=== PATIENT | female | born 1995 | race Hispanic/Latino ===

== ENCOUNTER 2023-03-12 02:43 | Day surgery (SDC) | payer OTHER | END 2023-03-12 04:38 | disposition home or self-care (01) | LOC: CSHLD/OP 02:43 | PROVIDERS: ATTEND Family Medicine | DX: O47.1 False labor at or after 37 completed weeks of gestation (principal); O34.211 Maternal care for low transverse scar from previous cesarean delivery; Z79.899 Other long term (current) drug therapy; Z3A.39 39 weeks gestation of pregnancy | CPT/HCPCS: 99283 ==

== ENCOUNTER 2023-03-12 11:16 | Outpatient (CLI) | payer OTHER | END 2023-03-12 11:17 | disposition home or self-care (01) | LOC: CSHLAB 11:16 | PROVIDERS: ATTEND Family Medicine | DX: Z01.812 Encounter for preprocedural laboratory examination (principal); O34.219 Maternal care for unspecified type scar from previous cesarean delivery; Z53.9 Procedure and treatment not carried out, unspecified reason | CPT/HCPCS: 85014; 85018; 85049; 86780; 86850; 86900; 86901; 87340 ==

== ENCOUNTER 2023-03-13 14:49 | Inpatient (IN) | payer MEDICAID, OTHER ==
[2023-03-12 12:34] LABS: Hematocrit 40.9 % (34.9-44.5); Hemoglobin 14.1 g/dL (12.0-15.5); Platelet Count 229 10x3/uL (150-450)
[2023-03-12 13:01] LABS: HBSAg Index 0.14 S/CO (0-0.99); Hep B Surf Ag Non-Reactive S/CO (NonReactive)
[2023-03-12 13:02] LABS: Syphilis Antibody Nonreactive (Nonreactive); Syphilis Antibody Index 0.13 S/CO (<1.00 Non-Reactive)
[2023-03-13 15:14] VITALS: BMI 36.6
[2023-03-13] MEDS ORDERED: ePHEDrine Sulfate 50 MG/10 ML VIAL ONE (15:36)
[2023-03-13] MEDS ORDERED: PHENYLEPHRINE-NS 100 MCG/ML 10 ML SYRINGE ONE (15:36)
[2023-03-13] MEDS ORDERED: Lidocaine 1% PF 5 ML VIAL ONE (15:36)
[2023-03-13] MEDS ORDERED: Bupivacaine 0.75% W/DEXTROSE 8.25% 2 ML AMP ONE (15:36)
[2023-03-13] MEDS ORDERED: Phenylephrine 40 MG/NS 250 ML 250 ML ONE (15:36)
[2023-03-13] MEDS ORDERED: Oxytocin 10 UNITS/ML VIAL ONE (15:36)
[2023-03-13] MEDS ORDERED: Morphine PF 10 MG/10 ML VIAL ONE (15:36)
[2023-03-13] MEDS ORDERED: fentaNYL 50 mcg/mL 1 mL Vial ONE ×2 (15:36→20:29)
[2023-03-13] MEDS ORDERED: Ondansetron PF 4 MG/2 ML Vial ONE (15:36)
[2023-03-13] MEDS ORDERED: Ketorolac Tromethamine 30 MG/ML VIAL ONE (15:36)
[2023-03-13] MEDS ORDERED: CEFAZOLIN 2 GM VIAL ONE (16:08)
[2023-03-13] MEDS ORDERED: Lactated Ringer's 1,000 ML IV SCH (16:35)
[2023-03-13] MEDS ORDERED: Misoprostol 200 MCG TAB PR PRN (16:35)
[2023-03-13] MEDS ORDERED: hydrALAZINE 20 MG/ML VIAL SLOW IVP PRN ×2 (16:35→23:52)
[2023-03-13] MEDS ORDERED: Famotidine/PF 20 mg/2ml Vial SLOW IVP PRN (16:35)
[2023-03-13] MEDS ORDERED: Carboprost 250 MCG/ML AMP IM PRN (16:35)
[2023-03-13] MEDS ORDERED: Tranexamic Acid 1,000 MG/10 ML VIAL IVP PRN (16:35)
[2023-03-13] MEDS ORDERED: CEFAZOLIN 2 GM in Sodium Chloride 0.9% 100 ML IVPB SCH (16:35)
[2023-03-13] MEDS ORDERED: Promethazine HCl 25 MG/ML VIAL IM PRN ×3 (16:35→23:52)
[2023-03-13] MEDS ORDERED: Bicitra 30 ML UDCUP PO PRN (16:35)
[2023-03-13] MEDS ORDERED: Ondansetron PF 4 MG/2 ML Vial IVP PRN ×3 (16:35→23:52)
[2023-03-13] MEDS ORDERED: Methylergonovine 0.2 MG/ML VIAL IM PRN (16:35)
[2023-03-13] MEDS ORDERED: Diphenoxylate HCl/Atropine Tablet PO PRN (16:35)
[2023-03-13] MEDS ORDERED: Oxytocin 30 units/NS 500 ML 500 ML IV SCH (16:35)
[2023-03-13] MEDS ORDERED: Naloxone HCl 0.4 mg/ml Vial IV PRN (16:42)
[2023-03-13] MEDS ORDERED: diphenhydrAMINE 50 MG/ML VIAL IVP PRN (16:42)
[2023-03-13] MEDS ORDERED: Promethazine HCl 25 MG SUPP PR PRN (16:42)
[2023-03-13] MEDS ORDERED: Naloxone HCl 0.4 mg/ml Vial IVP PRN ×2 (16:42)
[2023-03-13] MEDS ORDERED: Moisturizing Cream (Eucerin) 113 GM JAR TOP PRN (16:42)
[2023-03-13] MEDS ORDERED: Communication Order-Pharmacy FS SCH (16:45)
[2023-03-13] MEDS ORDERED: Ketorolac Tromethamine 30 MG/ML VIAL IVP PRN (18:00)
[2023-03-13] MEDS ORDERED: Lanolin Ointment 7 GM TUBE TOP PRN (23:52)
[2023-03-13] MEDS ORDERED: Boostrix 0.5 ML (Tdap) VIAL (>/=7 yrs of age) IM ONE (23:52)
[2023-03-13] MEDS ORDERED: Simethicone Chewable 80 MG TAB PO PRN (23:52)
[2023-03-13] MEDS ORDERED: Bisacodyl 10 MG SUPP PR PRN (23:52)
[2023-03-14] MEDS ORDERED: Ferrous Sulfate 325 MG TAB PO SCH (00:15)
[2023-03-14] MEDS ORDERED: Docusate 100 MG CAP PO SCH (00:15)
[2023-03-14] MEDS ORDERED: Communication Order-Pharmacy FS SCH ×2 (00:15→01:00)
[2023-03-14] MEDS: diphenhydrAMINE 25 MG CAP PO PRN ×2 (00:38→20:00)
[2023-03-14] MEDS ORDERED: Naloxone HCl 0.4 mg/ml Vial IV PRN (00:55)
[2023-03-14] MEDS ORDERED: diphenhydrAMINE 50 MG/ML VIAL IVP PRN (00:55)
[2023-03-14] MEDS ORDERED: Promethazine HCl 25 MG SUPP PR PRN (00:55)
[2023-03-14] MEDS ORDERED: Moisturizing Cream (Eucerin) 113 GM JAR TOP PRN (00:55)
[2023-03-14] MEDS ORDERED: Ondansetron PF 4 MG/2 ML Vial IVP PRN (00:55)
[2023-03-14] MEDS ORDERED: Naloxone HCl 0.4 mg/ml Vial IVP PRN ×2 (00:55)
[2023-03-14] MEDS ORDERED: Promethazine HCl 25 MG/ML VIAL IM PRN (00:55)
[2023-03-14] MEDS ORDERED: Ibuprofen 800 MG TAB PO SCH (01:00)
[2023-03-14] MEDS: Ketorolac Tromethamine 30 MG/ML VIAL IVP PRN ×4 (01:46→20:00)
[2023-03-14] MEDS ORDERED: Meperidine HCl/PF 25 MG/ML VIAL IM PRN (04:45)
[2023-03-14] MEDS: HYDROcodone/Acetaminophen 5/325 mg Tablet PO PRN ×5 (04:48→23:46)
[2023-03-14 05:03] LABS: Hemoglobin 12.5 g/dL (12.0-15.5); Mean Corpuscular HGB CONC 33.8 g/dL (32.0-36.0); Mean Corpuscular Hemoglobin 30.6 pg (27.0-33.0); Mean Corpuscular Volume 90.7 fl (81.6-98.3); Mean Platelet Volume 10.1 fl (7.4-10.4); Platelet Count 194 10x3/uL (150-450); RBC Distribution Width 13.4 % (11.5-14.5); Red Blood Cell (RBC) Count 4.08 10x6/uL (3.90-5.03); White Blood Cell (WBC) Count 10.8 10x3/uL (3.5-10.5)
[2023-03-14] MEDS: Prenatal Vitamin 1 TAB PO SCH (07:42)
[2023-03-14] MEDS: Docusate 100 MG CAP PO SCH ×2 (07:42→20:00)
[2023-03-14] MEDS: Ferrous Sulfate 325 MG TAB PO SCH ×2 (09:00→19:58)
[2023-03-15] MEDS: Ibuprofen 800 MG TAB PO SCH ×3 (03:59→21:27)
[2023-03-15] MEDS: HYDROcodone/Acetaminophen 5/325 mg Tablet PO PRN ×5 (06:34→22:55)
[2023-03-15] MEDS: Prenatal Vitamin 1 TAB PO SCH (08:01)
[2023-03-15] MEDS: Docusate 100 MG CAP PO SCH ×2 (08:02→21:27)
[2023-03-15] MEDS: Ferrous Sulfate 325 MG TAB PO SCH ×2 (09:48→19:32)
[2023-03-16] MEDS: Ibuprofen 800 MG TAB PO SCH ×2 (06:03→13:03)
[2023-03-16 07:54] VITALS: BP 124/73; TEMP 98.6
[2023-03-16] MEDS: Ferrous Sulfate 325 MG TAB PO SCH (07:54)
[2023-03-16] MEDS: HYDROcodone/Acetaminophen 5/325 mg Tablet PO PRN ×2 (08:19→13:03)
[2023-03-16] MEDS: Prenatal Vitamin 1 TAB PO SCH (08:20)
[2023-03-16] MEDS: Docusate 100 MG CAP PO SCH (08:20)
== END 2023-03-16 16:00 | disposition home or self-care (01) | DRG 788 ==
LOC: CSHLD 14:49 → CSHPED 21:00
PROVIDERS: ADMIT Family Medicine; ATTEND Family Medicine
PROC: 10D00Z1 Extraction of Products of Conception, Low, Open Approach (ICD-10-PCS; principal; 2023-03-13)
PROC: 3E033XZ Introduction of Vasopressor into Peripheral Vein, Percutaneous Approach (ICD-10-PCS; 2023-03-13)
DX: O34.211 Maternal care for low transverse scar from previous cesarean delivery (principal); Z3A.39 39 weeks gestation of pregnancy; Z37.0 Single live birth
CPT/HCPCS: 36415; 51702; 85014; 85018; 85027; 85049; 86780; 86850; 86900; 86901; 87340; J1885; J2274; J2405; J2590; J3010; J3490